=== PATIENT | female | born 1945 | race Caucasian/White ===

== ENCOUNTER 2021-11-06 13:03 | Outpatient (CLI) | payer MEDICARE, BC | END 2021-11-06 13:04 | disposition home or self-care (01) | LOC: CSHMAMMO 13:03 | PROVIDERS: ATTEND Family Medicine | DX: Z12.31 Encounter for screening mammogram for malignant neoplasm of breast (principal) | CPT/HCPCS: 77063; 77067 ==

== ENCOUNTER 2022-11-09 10:20 | Outpatient (CLI) | payer MEDICARE, BC | END 2022-11-09 10:21 | disposition home or self-care (01) | LOC: CSHMAMMO 10:20 | PROVIDERS: ATTEND Family Medicine | DX: Z12.31 Encounter for screening mammogram for malignant neoplasm of breast (principal) | CPT/HCPCS: 77063; 77067 ==

== ENCOUNTER 2023-02-04 14:03 | Outpatient (CLI) | payer MEDICARE, BC | END 2023-02-04 14:04 | disposition home or self-care (01) | LOC: CSHMRI 14:03 | PROVIDERS: ATTEND Family Medicine | DX: M54.16 Radiculopathy, lumbar region (principal); M47.816 Spondylosis without myelopathy or radiculopathy, lumbar region; M41.86 Other forms of scoliosis, lumbar region | CPT/HCPCS: 72100; 72148 ==

== ENCOUNTER 2024-01-12 14:10 | Outpatient (CLI) | payer MEDICARE, BC | END 2024-01-12 14:11 | disposition home or self-care (01) | LOC: CSHMAMMO 14:10 | PROVIDERS: ATTEND Family Medicine | DX: Z12.31 Encounter for screening mammogram for malignant neoplasm of breast (principal) | CPT/HCPCS: 77063; 77067 ==

== ENCOUNTER 2024-01-21 06:15 | Day surgery (SDC) | payer MEDICARE, BC ==
[2024-01-20 09:07] VITALS: BMI 43.0
[2024-01-21] MEDS ORDERED: PROPOFOL 20 ML ONE (08:09)
[2024-01-21] MEDS ORDERED: fentaNYL 50 mcg/mL 1 mL Vial ONE (08:22)
== END 2024-01-21 09:30 | disposition home or self-care (01) ==
LOC: CSHSDC 06:15
PROVIDERS: ATTEND Surgery
PROC: 0DB68ZX Excision of Stomach, Via Natural or Artificial Opening Endoscopic, Diagnostic (ICD-10-PCS; principal; 2024-01-21)
DX: K21.9 Gastro-esophageal reflux disease without esophagitis (principal); K31.89 Other diseases of stomach and duodenum; K29.50 Unspecified chronic gastritis without bleeding; K44.9 Diaphragmatic hernia without obstruction or gangrene; I10 Essential (primary) hypertension; M19.90 Unspecified osteoarthritis, unspecified site; E66.01 Morbid (severe) obesity due to excess calories; Z68.41 Body mass index [BMI] 40.0-44.9, adult; Z98.84 Bariatric surgery status; Z88.0 Allergy status to penicillin; Z88.2 Allergy status to sulfonamides; Z88.5 Allergy status to narcotic agent; Z88.8 Allergy status to other drugs, medicaments and biological substances; Z95.1 Presence of aortocoronary bypass graft
CPT/HCPCS: 43239; J3010; 88305; J2704

== ENCOUNTER 2024-09-19 10:03 | Outpatient (CLI) | payer OTHER | END 2024-09-19 10:04 | disposition home or self-care (01) | LOC: CSHDTY/OP 10:03 | PROVIDERS: ATTEND Nurse Practitioner Family | DX: E66.01 Morbid (severe) obesity due to excess calories (principal); I25.2 Old myocardial infarction; I25.10 Atherosclerotic heart disease of native coronary artery without angina pectoris | CPT/HCPCS: 97802 ==

== ENCOUNTER 2024-10-31 16:13 | Emergency (ER) | payer MEDICARE, BC ==
[2024-10-31] MEDS ORDERED: Lidocaine 1% w/Epinephrine 1:200K 30 ML VIAL ONE (16:40)
[2024-10-31] MEDS ORDERED: Bacitracin 1 PK ONE (16:49)
[2024-10-31] MEDS ORDERED: Boostrix 0.5 ML (Tdap) VIAL (>/=7 yrs of age) ONE (16:51)
== END 2024-10-31 17:15 | disposition home or self-care (01) ==
LOC: CSHERS 16:13
DX: S91.011A Laceration without foreign body, right ankle, initial encounter (principal); I10 Essential (primary) hypertension; I25.2 Old myocardial infarction; W26.8XXA Contact with other sharp object(s), not elsewhere classified, initial encounter; Y93.89 Activity, other specified; Y92.59 Other trade areas as the place of occurrence of the external cause; Z23 Encounter for immunization
CPT/HCPCS: 12001; 90471; 90715

== ENCOUNTER 2024-12-22 12:29 | Outpatient (CLI) | payer MEDICARE, BC ==
[2024-12-22] MEDS ORDERED: Iopamidol 370 76% 100 ML VIAL ONE (13:51)
== END 2024-12-22 12:30 | disposition home or self-care (01) ==
LOC: CSHCT 12:29
PROVIDERS: ATTEND Family Medicine
DX: R06.02 Shortness of breath (principal); R10.9 Unspecified abdominal pain
CPT/HCPCS: 74177; 82565

== ENCOUNTER 2025-08-16 08:29 | Outpatient (CLI) | payer MEDICARE, BC ==
[2025-08-16 09:42] LABS: Estimated GFR - POC 46.0
== END 2025-08-16 08:30 | disposition home or self-care (01) ==
LOC: CSHMRI 08:29
PROVIDERS: ATTEND Physician Assistant Medical
DX: D50.9 Iron deficiency anemia, unspecified (principal); K44.9 Diaphragmatic hernia without obstruction or gangrene
CPT/HCPCS: 36415; 74183; 82565

== ENCOUNTER 2025-09-11 07:38 | Outpatient (CLI) | payer MEDICARE, BC ==
[2025-09-11] MEDS ORDERED: Iopamidol 370 76% 100 ML VIAL ONE (10:41)
== END 2025-09-11 07:39 | disposition home or self-care (01) ==
LOC: CSHCT 07:38
PROVIDERS: ATTEND Thoracic Surgery (Cardiothoracic Vascular Surgery)
DX: I71.012 Dissection of descending thoracic aorta (principal)
CPT/HCPCS: 71275

== ENCOUNTER 2025-10-23 10:19 | Outpatient (CLI) | payer MEDICARE, BC ==
[2025-10-23 11:29] LABS: #Basophils Less than 0.03 10x3/uL (0.0-0.2); #Eosinophils 0.23 10x3/uL (0.0-0.5); #Monocytes 0.76 10x3/uL (0.0-1.1); #Neutrophils 3.80 10x3/uL (1.5-8.4); %Basophils 0.3 % (0.0-2.0); %Eosinophils 3.4 % (0.0-6.0); %Lymphocytes 29.1 % (18.0-47.0); %Monocytes 11.1 % (0.0-10.0); %Neutrophils 55.7 % (40.0-75.0); Hematocrit 29.1 % (34.9-44.5); Hemoglobin 9.1 g/dL (12.0-15.5); Mean Corpuscular Hemoglobin 30.6 pg (27.0-33.0); Mean Corpuscular Volume 98.0 fL (81.6-98.3); Platelet Count 240 10x3/uL (150-450); Red Blood Cell (RBC) Count 2.97 10x6/uL (3.90-5.03); White Blood Cell (WBC) Count 6.83 10x3/uL (3.5-10.5)
[2025-10-23 11:44] LABS: Anion Gap 13 mmol/L (10-20); BUN (Urea Nitrogen) 29 mg/dL (9.8-20.1); Calc. Creatinine Clearance 0 mL/min (70-130); Calcium 9.1 mg/dL (7.8-10.44); Carbon Dioxide 27 mmol/L (23-31); Chloride 107 mmol/L (98-107); Glucose 90 mg/dL (83-110); Potassium 4.8 mmol/L (3.5-5.1); Sodium 142 mmol/L (136-145)
== END 2025-10-23 10:20 | disposition home or self-care (01) ==
LOC: CSHLAB 10:19
PROVIDERS: ATTEND Specialist
DX: Z01.818 Encounter for other preprocedural examination (principal); D05.11 Intraductal carcinoma in situ of right breast; I51.7 Cardiomegaly
CPT/HCPCS: 71046; 80048; 85025